=== PATIENT | male | born 1960 | race Asian ===

== ENCOUNTER 2019-04-10 11:06 | Emergency (ER) | payer BC ==
[~2019-04-10 11:06] MED LIST: CARV12.580 PO; FLUC200T PO; FURO40TA5 PO; HYDRALAZINE PO; ISOS30TA6 PO; LACT10SO9 PO; NITR0.4T50 SL; RANI300T7 PO; RIFA550T PO; ROSU5TAB PO; SODI650T PO; SOLI10TA PO; TYL3 PO; [UNRECOGNIZED DRUG - CODE] MC
[2019-04-10] MEDS ORDERED: ONDANSETRON HCL 4 MG/2 ML VIAL ONE (11:18)
[2019-04-10] MEDS ORDERED: FENTANYL CITRATE PF 50 MCG/1 ML 2ML VIAL ONE (11:18)
[2019-04-10] MEDS ORDERED: SODIUM CHLORIDE 0.9% 500ML 500 ML IV ONE ×3 (11:19→14:18)
[2019-04-10 11:29] LABS: BASOPHILS % (AUTO) 1.2 % (0.0-5.0); CREATININE 2.4 mg/dL (0.5-1.5); EOSINOPHILS % (AUTO) 5.4 % (0.0-8.0); HEMATOCRIT 37.3 % (42-54); LYMPHOCYTES % (AUTO) 15.6 % (21.0-51.0); MEAN CORPUSCULAR HEMOGLOBIN 32.3 pg (27.0-33.0); MEAN CORPUSCULAR HGB CONC 33.8 g/dL (32.0-36.0); MEAN CORPUSCULAR VOLUME 95.5 fL (79-99); MONOCYTES % (AUTO) 5.6 % (3.0-13.0); NEUTROPHILS % (AUTO) 72.2 % (40.0-77.0); PLATELET COUNT (AUTO) 151 K/uL (130-400); RED CELL DISTRIBUTION WIDTH 14.7 % (11.0-15.5); WHITE BLOOD COUNT (AUTO) 10.4 K/uL (4.8-10.8)
[2019-04-10 11:33] LABS: ALBUMIN 2.3 g/dL (3.5-5.0); BILIRUBIN,DIRECT 0.6 mg/dL (0.0-0.3); BILIRUBIN,TOTAL 1.2 mg/dL (0.2-1.0); TOTAL PROTEIN, SERUM 8.7 g/dL (6.0-8.3)
[2019-04-10 11:41] LABS: INR 1.09 (0.85-1.15); PARTIAL THROMBOPLASTIN TIME 25.7 SEC (26.3-35.5); PROTHROMBIN TIME 11.4 SEC (9.6-11.6)
[2019-04-10] MEDS ORDERED: HYDROMORPHONE 1 MG/1 ML AMP ONE (14:09)
== END 2019-04-10 15:44 | disposition home or self-care (01) ==
LOC: EDH 11:06
DX: R10.11 Right upper quadrant pain (principal); R11.0 Nausea; E11.9 Type 2 diabetes mellitus without complications; Z85.51 Personal history of malignant neoplasm of bladder; Z88.1 Allergy status to other antibiotic agents; Z79.899 Other long term (current) drug therapy
CPT/HCPCS: 36415; 71045; 74176; 76705; 80048; 80076; 82550; 82948; 83690; 84484; 85025; 85610; 85730; 93005; 96374; 96375; 96376; 99285; J1170; J2405; J3010; J7040 ×3

== ENCOUNTER → 2019-10-08 | Outpatient (CLI) | payer BC | END | disposition home or self-care (01) | LOC: RAH 08:39 | PROVIDERS: ATTEND Internal Medicine Gastroenterology | DX: K74.60 Unspecified cirrhosis of liver (principal); E72.29 Other disorders of urea cycle metabolism; K76.6 Portal hypertension | CPT/HCPCS: 76700; 93975 ==

== ENCOUNTER 2020-04-13 19:51 | Emergency (ER) | payer BC ==
[2020-04-13] MEDS ORDERED: ONDANSETRON HCL 4 MG/2 ML VIAL ONE (20:23)
[2020-04-13] MEDS ORDERED: FAMOTIDINE/PF 20 MG/2 ML VIAL IV ONE (20:24)
[2020-04-13] MEDS ORDERED: MORPHINE SULFATE 4 MG/1ML SYG ONE (20:24)
[2020-04-13 20:43] LABS: BASOPHILS % (AUTO) 1.1 % (0.0-5.0); EOSINOPHILS % (AUTO) 5.6 % (0.0-8.0); HEMATOCRIT 34.6 % (42-54); LYMPHOCYTES % (AUTO) 19.2 % (21.0-51.0); MEAN CORPUSCULAR HEMOGLOBIN 31.1 pg (27.0-33.0); MEAN CORPUSCULAR HGB CONC 32.9 g/dL (32.0-36.0); MEAN CORPUSCULAR VOLUME 94.3 fL (79-99); MONOCYTES % (AUTO) 8.1 % (3.0-13.0); NEUTROPHILS % (AUTO) 65.7 % (40.0-77.0); PLATELET COUNT (AUTO) 156 K/uL (130-400); RED BLOOD CELL COUNT(AUTO) 3.67 MIL/uL (4.50-6.20); RED CELL DISTRIBUTION WIDTH 15.6 % (11.0-15.5); WHITE BLOOD COUNT (AUTO) 8.7 K/uL (4.8-10.8)
[2020-04-13 20:56] LABS: CREATININE 2.5 mg/dL (0.5-1.5); POTASSIUM 4.3 mmol/L (3.5-5.1)
[2020-04-13 20:59] LABS: INR 1.06 (0.85-1.15); PARTIAL THROMBOPLASTIN TIME 29.1 SEC (26.3-35.5); PROTHROMBIN TIME 11.4 SEC (9.6-11.6)
[2020-04-13 21:00] LABS: ALBUMIN 2.4 g/dL (3.5-5.0); BILIRUBIN,TOTAL 0.7 mg/dL (0.2-1.0)
[2020-04-13 21:05] LABS: APPEARANCE,URINE Clear (CLEAR); BILIRUBIN,URINE Negative (NEGATIVE); COLOR,URINE Yellow (YELLOW); GLUCOSE, URINE (UA) Negative (NEGATIVE); KETONES,URINE Negative (NEGATIVE); LEUKOCYTE ESTERASE ,URINE Negative (NEGATIVE); NITRATE,URINE Negative (NEGATIVE); OCCULT BLOOD,URINE Trace (NEGATIVE); PROTEIN,URINE POS 2+ mg/dL (NEGATIVE); UROBILINOGEN,URINE 0.2 mg/dL (0.2-1.0)
[2020-04-13 21:18] LABS: BACTERIA,URINE Rare /HPF (None Seen); SQUAMOUS EPITHELIAL CELL,UR Few /HPF (0-2)
== END 2020-04-13 22:45 | disposition home or self-care (01) ==
LOC: EDH 19:51
DX: K70.30 Alcoholic cirrhosis of liver without ascites (principal); R10.84 Generalized abdominal pain; Z20.828 Contact with and (suspected) exposure to other viral communicable diseases; E11.9 Type 2 diabetes mellitus without complications; Z88.8 Allergy status to other drugs, medicaments and biological substances; Z95.0 Presence of cardiac pacemaker
CPT/HCPCS: 36415; 71045; 74176; 80053; 81001; 82140; 82150; 83605; 83690; 83880; 84484; 85025; 85610; 85730; 87040 ×2; 87426; 93005; 96374; 96375; 99285; J2270; J2405; J3490; U0003

== ENCOUNTER → 2020-04-21 | Outpatient (CLI) | payer BC | END | disposition home or self-care (01) | LOC: RAH 07:21 | PROVIDERS: ATTEND Internal Medicine Gastroenterology | DX: K74.60 Unspecified cirrhosis of liver (principal); K82.0 Obstruction of gallbladder; J90 Pleural effusion, not elsewhere classified; R10.11 Right upper quadrant pain | CPT/HCPCS: 76700; 78226; A9537 ==

== ENCOUNTER 2020-06-15 00:19 | Emergency (ER) | payer BC ==
[~2020-06-15 00:19] MED LIST changes: -ISOS30TA6 PO; +ISOS30TA92 PO
[2020-06-15 01:14] LABS: BASOPHILS % (AUTO) 1.2 % (0.0-5.0); EOSINOPHILS % (AUTO) 5.8 % (0.0-8.0); HEMATOCRIT 30.9 % (42-54); LYMPHOCYTES % (AUTO) 16.9 % (21.0-51.0); MEAN CORPUSCULAR HEMOGLOBIN 31.2 pg (27.0-33.0); MEAN CORPUSCULAR HGB CONC 33.3 g/dL (32.0-36.0); MEAN CORPUSCULAR VOLUME 93.6 fL (79-99); NEUTROPHILS % (AUTO) 66.7 % (40.0-77.0); PLATELET COUNT (AUTO) 170 K/uL (130-400); RED CELL DISTRIBUTION WIDTH 14.5 % (11.0-15.5); WHITE BLOOD COUNT (AUTO) 8.1 K/uL (4.8-10.8)
[2020-06-15 01:19] LABS: CREATININE 2.7 mg/dL (0.5-1.5); POTASSIUM 3.3 mmol/L (3.5-5.1)
[2020-06-15 01:22] LABS: INR 1.17 (0.85-1.15); PROTHROMBIN TIME 12.3 SEC (9.6-11.6)
[2020-06-15 01:23] LABS: PARTIAL THROMBOPLASTIN TIME 31.9 SEC (26.3-35.5)
[2020-06-15 01:23] LABS: ALBUMIN 2.2 g/dL (3.5-5.0); BILIRUBIN,DIRECT 0.4 mg/dL (0.0-0.3); BILIRUBIN,TOTAL 0.8 mg/dL (0.2-1.0); TOTAL PROTEIN, SERUM 8.6 g/dL (6.0-8.3)
[2020-06-15] MEDS ORDERED: FUROSEMIDE 40MG VIAL ONE (01:58)
[2020-06-15] MEDS ORDERED: DEXTROSE 50%-WATER 50 ML DISP.SYRIN IV ONE (01:58)
[2020-06-15] MEDS ORDERED: FUROSEMIDE 20MG VIAL ONE (01:59)
[2020-06-15 02:08] LABS: B-TYPE NATRIURETIC PEPTIDE 3010 pg/mL (0-100)
[2020-06-15 02:51] LABS: ABG OXYGEN SATURATION 64.7 % (95.0-99.0); BASE EXCESS,VENOUS BLOOD GAS -3.9 (-2.0-3.0); HCO3,VENOUS BLOOD GAS 20.3 (21.0-28.0); PCO2,VENOUS BLOOD GAS 35 (35-48); PH,VENOUS BLOOD GAS 7.383 (7.350-7.450)
== END 2020-06-15 06:00 | disposition home or self-care (01) ==
LOC: EDH 00:19
DX: R50.83 Postvaccination fever (principal); I50.9 Heart failure, unspecified; E11.22 Type 2 diabetes mellitus with diabetic chronic kidney disease; N18.9 Chronic kidney disease, unspecified; I25.10 Atherosclerotic heart disease of native coronary artery without angina pectoris; Z95.1 Presence of aortocoronary bypass graft; Z88.8 Allergy status to other drugs, medicaments and biological substances
CPT/HCPCS: 36415; 36600; 71045; 80048; 80076; 82140; 82803; 82948 ×2; 83605 ×2; 83690; 83735; 83880; 84145; 84484; 85025; 85610; 85730; 87040 ×2; 93005; 96374; 96375; 99285; J1940 ×2; J7070

== ENCOUNTER 2020-07-10 12:32 | Inpatient (IN) | payer BC ==
[2020-07-10] VITALS (12 sets, daily range): BP systolic 72–130; BP diastolic 40–72
[~2020-07-10] VITALS: Ht 172.7 cm; Wt 79.4 kg
[2020-07-10 13:22] LABS: BASOPHILS % (AUTO) 1.1 % (0.0-5.0); EOSINOPHILS % (AUTO) 11.8 % (0.0-8.0); HEMATOCRIT 35.6 % (42-54); LYMPHOCYTES % (AUTO) 16.4 % (21.0-51.0); MEAN CORPUSCULAR HEMOGLOBIN 30.4 pg (27.0-33.0); MEAN CORPUSCULAR HGB CONC 32.9 g/dL (32.0-36.0); MEAN CORPUSCULAR VOLUME 92.5 fL (79-99); MONOCYTES % (AUTO) 5.3 % (3.0-13.0); NEUTROPHILS % (AUTO) 65.1 % (40.0-77.0); PLATELET COUNT (AUTO) 183 K/uL (130-400); RED BLOOD CELL COUNT(AUTO) 3.85 MIL/uL (4.50-6.20); RED CELL DISTRIBUTION WIDTH 14.1 % (11.0-15.5); WHITE BLOOD COUNT (AUTO) 9.8 K/uL (4.8-10.8)
[2020-07-10 13:34] LABS: INR 1.09 (0.85-1.15); PROTHROMBIN TIME 11.8 SEC (9.6-11.6)
[2020-07-10 13:36] LABS: PARTIAL THROMBOPLASTIN TIME 27.1 SEC (26.3-35.5)
[2020-07-10 13:40] LABS: ALBUMIN 2.2 g/dL (3.5-5.0); BILIRUBIN,TOTAL 0.7 mg/dL (0.2-1.0); CREATININE 3.1 mg/dL (0.5-1.5); POTASSIUM 4.8 mmol/L (3.5-5.1); TOTAL PROTEIN, SERUM 10.3 g/dL (6.0-8.3)
[2020-07-10 13:42] LABS: APPEARANCE,URINE Clear (CLEAR); BILIRUBIN,URINE Negative (NEGATIVE); COLOR,URINE Yellow (YELLOW); GLUCOSE, URINE (UA) >=1000 mg/dL (NEGATIVE); KETONES,URINE Negative (NEGATIVE); LEUKOCYTE ESTERASE ,URINE Negative (NEGATIVE); NITRATE,URINE Negative (NEGATIVE); OCCULT BLOOD,URINE Negative (NEGATIVE); PROTEIN,URINE POS 1+ mg/dL (NEGATIVE); UROBILINOGEN,URINE 0.2 mg/dL (0.2-1.0)
[2020-07-10] MEDS ORDERED: LACTULOSE 20 GM/30 ML UDCUP ONE (13:47)
[2020-07-10] MEDS ORDERED: ZOSYN 3.375GM+NS 50ML 0 ML IV ONE (14:00)
[2020-07-10] MEDS ORDERED: VANCOMYCIN 1G/250ML KIT 250 ML IV ONE (14:01)
[2020-07-10 14:05] LABS: BACTERIA,URINE None Seen /HPF (None Seen); RBC,URINE None Seen /HPF (0-1); SQUAMOUS EPITHELIAL CELL,UR 0-2 /HPF (0-2); WBC,URINE None Seen /HPF (0-1)
[2020-07-10] MEDS ORDERED: LORAZEPAM 2 MG/ML 1 ML VIAL ONE (15:30)
[2020-07-10] MEDS ORDERED: MILRINONE-D5W 20 MG/100 ML 100 ML IV ONE (16:53)
[2020-07-10] MEDS ORDERED: PROPOFOL 1000 MG/100 ML 100 ML IV ONE (17:13)
[2020-07-10 17:32] LABS: ABG BASE EXCESS -0.6 mmol/L (-2.0-3.0); ABG HCO3 24.1 mmol/L (21.0-28.0); ABG OXYGEN SATURATION 94.5 % (95.0-99.0); ABG PCO2 40 mmHg (35-48)
[2020-07-10] MEDS ORDERED: NOREPINEPHRIN 4MG/NS 250ML 250 ML IV ONE (18:23)
[2020-07-10] MEDS ORDERED: ONDANSETRON 4MG INJ IVP PRN (18:30)
[2020-07-10] MEDS ORDERED: FENTANYL 2500MCG+NS 250ML 250 ML IV STA (19:01)
[2020-07-10] MEDS ORDERED: LABETALOL 20MG SYG IV PRN (19:15)
[2020-07-10] MEDS ORDERED: INSULIN REGULAR, HUMAN 3ML 100 UNIT in 0.9%NACL 100ML 99 ML IV SCH ×2 (19:15)
[2020-07-10] MEDS ORDERED: LEVOFLOXACIN 500 MG/D5W 100 ML 100 ML IV SCH (19:15)
[2020-07-10] MEDS ORDERED: ACETAMINOPHEN 325 MG TAB PO PRN (19:30)
[2020-07-10] MEDS ORDERED: 0.9%NACL 100ML 100 ML IV ONE (19:31)
[2020-07-10] MEDS: LACTULOSE 20 GM/30 ML UDCUP GT SCH (21:00)
[2020-07-10] MEDS: FUROSEMIDE 40MG VIAL IVP SCH (21:00)
[2020-07-10] MEDS: RIFAXIMIN 550 MG TABLET GT SCH (21:00)
[2020-07-10 21:10] LABS: TROPONIN I 0.23 ng/mL (0.00-0.06)
[2020-07-10] MEDS: HEPARIN 5,000 UNIT VIAL SQ SCH (22:37)
[2020-07-11] VITALS (19 sets, daily range): BP systolic 103–132; BP diastolic 45–65
[2020-07-11] MEDS: MILRINONE-D5W 20 MG/100 ML 100 ML IV SCH ×2 (01:14→13:32)
[2020-07-11] MEDS: NOREPINEPHRIN 4MG/NS 250ML 250 ML IV SCH ×5 (01:15→19:07)
[2020-07-11] MEDS ORDERED: MIDAZOLAM 100MG-0.9% NS 100ML 100 ML IV ONE (02:23)
[2020-07-11] MEDS ORDERED: MIDAZOLAM 100MG-0.9% NS 100ML 100ML BAG IV ONE (02:45)
[2020-07-11] MEDS ORDERED: PHARMACY COMMUNICATION MISC SCH ×3 (05:00→11:15)
[2020-07-11 05:09] LABS: INR 1.16 (0.85-1.15); PROTHROMBIN TIME 12.5 SEC (9.6-11.6)
[2020-07-11 05:11] LABS: PARTIAL THROMBOPLASTIN TIME 29.6 SEC (26.3-35.5)
[2020-07-11 05:12] LABS: BASOPHILS % (AUTO) 0.7 % (0.0-5.0); EOSINOPHILS % (AUTO) 1.8 % (0.0-8.0); HEMATOCRIT 35.6 % (42-54); LYMPHOCYTES % (AUTO) 9.4 % (21.0-51.0); MEAN CORPUSCULAR HEMOGLOBIN 30.9 pg (27.0-33.0); MONOCYTES % (AUTO) 4.2 % (3.0-13.0); NEUTROPHILS % (AUTO) 83.1 % (40.0-77.0); PLATELET COUNT (AUTO) 182 K/uL (130-400); RED BLOOD CELL COUNT(AUTO) 3.91 MIL/uL (4.50-6.20); RED CELL DISTRIBUTION WIDTH 13.9 % (11.0-15.5)
[2020-07-11 05:34] LABS: ALBUMIN 1.5 g/dL (3.5-5.0); BILIRUBIN,TOTAL 1.3 mg/dL (0.2-1.0); CREATININE 3.4 mg/dL (0.5-1.5); MAGNESIUM 1.7 mg/dL (1.80-2.40); PHOSPHORUS 2.7 mg/dL (2.5-4.9); TOTAL PROTEIN, SERUM 8.8 g/dL (6.0-8.3); TROPONIN I 0.5 ng/mL (0.00-0.06)
[2020-07-11 05:42] LABS: HEMOGLOBIN A1C 8.4 % (4.0-6.0)
[2020-07-11 06:12] LABS: WHITE BLOOD COUNT (AUTO) 30.4 K/uL (4.8-10.8)
[2020-07-11 07:09] LABS: ABG BASE EXCESS 3.8 mmol/L (-2.0-3.0); ABG HCO3 24.1 mmol/L (21.0-28.0); ABG OXYGEN SATURATION 99.7 % (95.0-99.0); ABG PCO2 26 mmHg (35-48)
[2020-07-11 07:29] LABS: BAND NEUTROPHILS % (MANUAL) 4 % (0-2); LYMPHOCYTES % (MANUAL) 14 % (22-44); MAN.DIFF COMMENT-IMPRESSION MANUAL DIFFERENTIAL; MONOCYTES % (MANUAL) 3 % (2-9); SEGMENTED NEUTROPHILS % 79 % (40-70)
[2020-07-11 07:30] LABS: PLATELET MORPHOLOGY COMMENT ADEQUATE
[2020-07-11] MEDS: FUROSEMIDE 40MG VIAL IVP SCH (08:34)
[2020-07-11] MEDS: HEPARIN 5,000 UNIT VIAL SQ SCH (08:35)
[2020-07-11] MEDS: RIFAXIMIN 550 MG TABLET GT SCH (08:56)
[2020-07-11] MEDS ORDERED: LACTULOSE 20 GM/30 ML UDCUP PO SCH (09:00)
[2020-07-11] MEDS: LACTULOSE 20 GM/30 ML UDCUP GT SCH ×2 (09:00→13:42)
[2020-07-11] MEDS ORDERED: PANTOPRAZOLE 40 MG/VIAL IVP SCH (09:00)
[2020-07-11] MEDS ORDERED: THIAMINE HCL 100 MG/ML 2ML VIAL IV SCH (09:00)
[2020-07-11] MEDS: ALBUMIN (HUMAN) 25% 100 ML IV SCH ×2 (10:39→17:17)
[2020-07-11 11:04] LABS: B-TYPE NATRIURETIC PEPTIDE 3888 pg/mL (0-100)
[2020-07-11] MEDS ORDERED: LACTULOSE 20 GM/30 ML UDCUP PR PRN ×2 (11:15→12:30)
[2020-07-11 12:20] LABS: TROPONIN I 0.44 ng/mL (0.00-0.06)
[2020-07-11] MEDS: FENTANYL 2500MCG+NS 250ML 250 ML IV SCH ×2 (13:41→19:05)
[2020-07-11] MEDS ORDERED: MIDAZOLAM 100MG-0.9% NS 100ML 100ML BAG IV PRN (16:15)
[2020-07-11] MEDS ORDERED: LEVOFLOXACIN 500 MG/D5W 100 ML 100 ML IV SCH (17:00)
[2020-07-11] MEDS ORDERED: MILRINONE-D5W 20 MG/100 ML 100 ML IV ONE (19:01)
== END 2020-07-11 19:00 | disposition short-term general hospital (02) | DRG 208 ==
LOC: EDH 12:32 → EDHIP 16:50 → 2CH 21:36 → 2DH 07-11 11:34
PROVIDERS: ADMIT Internal Medicine Nephrology; ATTEND Internal Medicine Nephrology
PROC: 5A1935Z Respiratory Ventilation, Less than 24 Consecutive Hours (ICD-10-PCS; principal; 2020-07-10)
PROC: 0BH17EZ Insertion of Endotracheal Airway into Trachea, Via Natural or Artificial Opening (ICD-10-PCS; 2020-07-10)
PROC: 02HV33Z Insertion of Infusion Device into Superior Vena Cava, Percutaneous Approach (ICD-10-PCS; 2020-07-11)
PROC: B548ZZA Ultrasonography of Superior Vena Cava, Guidance (ICD-10-PCS; 2020-07-11)
DX: J96.01 Acute respiratory failure with hypoxia (principal); I50.23 Acute on chronic systolic (congestive) heart failure; E11.00 Type 2 diabetes mellitus with hyperosmolarity without nonketotic hyperglycemic-hyperosmolar coma (NKHHC); K72.00 Acute and subacute hepatic failure without coma; J18.9 Pneumonia, unspecified organism; E87.2 Acidosis; N17.9 Acute kidney failure, unspecified; I42.8 Other cardiomyopathies; I95.9 Hypotension, unspecified; K76.0 Fatty (change of) liver, not elsewhere classified; I25.10 Atherosclerotic heart disease of native coronary artery without angina pectoris; R77.8 Other specified abnormalities of plasma proteins; K74.60 Unspecified cirrhosis of liver; Z20.822 Contact with and (suspected) exposure to COVID-19; E11.22 Type 2 diabetes mellitus with diabetic chronic kidney disease; N18.9 Chronic kidney disease, unspecified; Z76.82 Awaiting organ transplant status; Z79.4 Long term (current) use of insulin; Z95.810 Presence of automatic (implantable) cardiac defibrillator
CPT/HCPCS: 31500; 36415; 36600; 70450; 71045; 80053; 81001; 82010; 82140; 82150; 82435; 82550; 82803; 82947; 82948; 83036; 83605; 83690; 83735; 83874; 83880; 84100; 84132; 84145; 84295; 84484; 85018; 85025; 85610; 85730; 87040; 87071; 87088; 87205; 87426; 87804; 87880; 93005; 94002; 94003; C9113; G0378; J1644; J1815; J1940; J1956; J2060; J2250; J2260; J2543; J2704; J3370; J3411; J3490; P9046; U0003